=== PATIENT | female | born 2000 | race Caucasian/White ===

== ENCOUNTER 2021-06-01 10:56 | Observation (INO) | payer MEDICAID ==
[2021-06-01 11:59] VITALS: BP 108/63; PULSE 82
--- NOTE | 2021-06-01 12:32 | XRAY ---
Indication: Evaluate AMANDA. Decreased movements. Limited OB ultrasound demonstrates single intrauterine with heart rate 149 BPM. Four-quadrant AMANDA is 22.7 cm, largest pocket 6.3 cm.
== END 2021-06-01 12:30 | disposition home or self-care (01) ==
LOC: OB 10:56
PROVIDERS: ADMIT Family Medicine; ATTEND Family Medicine
DX: Z34.03 Encounter for supervision of normal first pregnancy, third trimester (principal); Z3A.31 31 weeks gestation of pregnancy
CPT/HCPCS: 76815; G0378

== ENCOUNTER 2021-07-15 13:39 | Inpatient (IN) | payer MEDICAID ==
[2021-07-15 14:28] LABS: Amphetamine,Urine NEGATIVE (NEGATIVE); Barbiturate,Urine NEGATIVE (NEGATIVE); Benzodiazepine,Urine NEGATIVE (NEGATIVE); Cocaine,Urine NEGATIVE (NEGATIVE); Methadone,Urine NEGATIVE (NEGATIVE); Opiate,Urine NEGATIVE (NEGATIVE); PCP,Urine NEGATIVE (NEGATIVE); THC,Urine NEGATIVE (NEGATIVE)
[2021-07-15] MEDS ORDERED: TYLENOL EXTRA STRENGTH 500 MG PO PRN (14:48)
[2021-07-15] MEDS ORDERED: Zofran 4 MG/2 ML VIAL IV PRN (14:48)
[2021-07-15] MEDS ORDERED: XYLOCAINE 1% HCL 20 ML MDV IJ PRN (14:48)
[2021-07-15] MEDS ORDERED: Ephedrine Sulfate 50 MG/ML IV PRN (14:55)
[2021-07-15] MEDS ORDERED: Lactated Ringers 1,000 ML IV ONE (14:55)
[2021-07-15] MEDS ORDERED: OMNIPEN 2 GM*** 2 G in Sodium Chloride 100ML MINI-BAG PLUS 100 ML IV ONE (15:00)
[2021-07-15] MEDS ORDERED: FENTANYL 2 MCG-BUPIV 0.125%-NS 250 ML Epidur 250 ML EPIDURAL SCH (15:00)
[2021-07-15 16:13] LABS: Absolute Neutrophil Ct (ANC) 10.09 (1.4-6.9); Basophil (Absolute #) 0.01 (0-0.4); Eosinophil % 0.5 % (0.00-5.0); Eosinophil (Absolute #) 0.06 (0-0.5); Hematocrit 36.4 % (35-47); Hemoglobin 12.2 gm/dl (12.0-16.0); Lymphocyte (Absolute #) 1.85 (1.0-4.6); Lymphocytes % 14.5 % (24.0-44.0); Mean Cell Volume 89.2 fl (78-100); Mean Corpuscular Hemoglobin 29.9 pg (26-32); Mean Corpuscular Hgb Concent. 33.5 g/dl (32-36); Mean Platelet Volume 9.8 fl (7.5-11.0); Monocyte (Absolute #) 0.72 (0.0-1.3); Monocytes % 5.7 % (0.0-12.0); Neutrophil % 79.2 % (36.0-66.0); Platelet Count 271 K/mm3 (150-450); Red Blood Count 4.08 M/mm3 (4.1-5.4); Red Cell Distribution Width 13.2 % (11.5-14.0); White Blood Count 12.7 K/mm3 (4.0-10.5)
[2021-07-15] MEDS ORDERED: BRETHINE 1 MG/ML SQ PRN (16:28)
[2021-07-15] MEDS: Lactated Ringers 1,000 ML IV SCH (16:29)
[2021-07-15] MEDS ORDERED: PITOCIN 30 UNITS/ LR 500 ML 30 UNITS/500 ML PLAST..BAG IV SCH (16:30)
[2021-07-15 17:01] LABS: ABO TYPING O; Antibody Screen NEGATIVE (NEGATIVE); RH TYPING POSITIVE
[2021-07-15 18:57] LABS: COVID AG -BINAX NOW RAPID TEST NEGATIVE (NEGATIVE)
[2021-07-15] MEDS: OMNIPEN 1 GM*** 1 GM in Sodium Chloride 100ML MINI-BAG PLUS 100 ML IV SCH ×2 (19:57→23:51)
[2021-07-16] MEDS: Lactated Ringers 1,000 ML IV SCH ×2 (02:45→04:11)
[2021-07-16] MEDS ORDERED: BRETHINE 1 MG/ML ONE (04:15)
[2021-07-16] MEDS ORDERED: SOD CITRATE-CITRIC ACID SOLN ONE (04:15)
[2021-07-16] MEDS ORDERED: Pepcid 20 MG VIAL IV ONE (04:15)
[2021-07-16] MEDS ORDERED: Reglan 10 MG/2 ML ONE (04:16)
[2021-07-16] MEDS ORDERED: Lactated Ringers 1,000 ML IV ONE (04:24)
[2021-07-16] MEDS ORDERED: Pepcid 20 MG VIAL IV SCH (04:30)
[2021-07-16] MEDS ORDERED: Reglan 10 MG/2 ML IV SCH (04:30)
[2021-07-16] MEDS ORDERED: SOD CITRATE-CITRIC ACID SOLN PO SCH (04:30)
[2021-07-16 04:47] LABS: Hemoglobin 10.9 gm/dl (12.0-16.0); Mean Cell Volume 91.2 fl (78-100); Mean Corpuscular Hemoglobin 30.1 pg (26-32); Mean Platelet Volume 9.7 fl (7.5-11.0); Platelet Count 233 K/mm3 (150-450); Red Blood Count 3.62 M/mm3 (4.1-5.4); Red Cell Distribution Width 13.5 % (11.5-14.0); White Blood Count 15.5 K/mm3 (4.0-10.5)
[2021-07-16] MEDS ORDERED: XYLOCAINE 2%/Epi 1:200000 20ML VIAL MPF ONE (04:50)
[2021-07-16] MEDS ORDERED: Pitocin 10 UNITS/ML ONE (04:50)
[2021-07-16] MEDS ORDERED: Astramorph-Pf 5 MG/10 ML ONE (04:51)
[2021-07-16 04:54] LABS: INR 1.1 (0.8-3.0)
[2021-07-16 04:57] LABS: PTT 27.1 SECONDS (25.1-36.5)
[2021-07-16] MEDS: OMNIPEN 1 GM*** 1 GM in Sodium Chloride 100ML MINI-BAG PLUS 100 ML IV SCH ×2 (05:00→21:00)
[2021-07-16] MEDS ORDERED: CEFAZOLIN 2 GM-D5W BAG** 2 GM/50 ML ML IV SCH (05:00)
[2021-07-16] MEDS ORDERED: Ephedrine Sulfate 50 MG/ML ONE (05:09)
[2021-07-16] MEDS ORDERED: Naropin 0.5% 30 ML VIAL ONE (05:29)
[2021-07-16] MEDS ORDERED: Decadron 4 MG INJ ONE (05:29)
[2021-07-16] MEDS ORDERED: EPINEPHRINE 1MG/ML AMP ONE (05:29)
[2021-07-16] MEDS ORDERED: SUBLIMAZE 100 MCG/2 ML ONE (05:31)
[2021-07-16] MEDS ORDERED: PHENYLEPHRINE HCL ONE (05:38)
[2021-07-16] MEDS ORDERED: TORAdol 30 mg Injection ONE (05:55)
--- NOTE | 2021-07-16 09:14 | OP ---
SURGERY DATE: 07/16/2021 SURGERY TIME: 0505 PREOPERATIVE DIAGNOSES: 1. NONREASSURING HEART TONES. POSTOPERATIVE DIAGNOSES: 1. NONREASSURING HEART TONES. PROCEDURE: 1. Primary low transverse section. SURGEON: John Jones M.D. ANESTHESIA: Epidural by Siva Ye CRNA. ESTIMATED BLOOD LOSS: 400 ml. URINE: 250 ml of clear, straw-colored urine. SPECIMEN: 1. Placenta was sent for pathology. DESCRIPTION OF PROCEDURE: The patient is a 21 y/o 1, para 0 who came in with spontaneous rupture of membranes at 37+ weeks estimated gestational age. During labor, she developed some late decelerations with large sweeping decels at approximately 6 cm of dilation. Therefore, due to nonreassuring heart tones, she was consented for primary low transverse section. Discussed risks, benefits, and alternatives to include risk of bleeding, risk of damage to surrounding structure, and risk of blood loss. The patient consented and had her previously placed laboring epidural dosed for anesthesia and was taken to the OR. She was prepped and draped and after adequate anesthesia was assessed, a low transverse skin incision was made by knife and carried down through the subcutaneous fat to the level of the fascia. The fascia was nicked on both sides of the midline and extended horizontal using curved Benjamin scissors. The superior free edge of the fascia was grasped with Lorenza clamps and the underlying rectus muscles were dissected free. The same was repeated inferiorly. The peritoneal cavity was opened bluntly and extended horizontal. Then, a bladder flap was created and reflected over the lower uterine segment. A horizontal uterine incision was made by knife and carried down to the level of the amniotic membranes which were carefully opened. A viable male with nuchal cord X 1 was delivered from the vertex presentation with some caput. Strong cry was immediately present upon delivery. Oropharynx and nares were bulb suctioned. Then, the cord was clamped and cut and he was handed off to the awaiting nursery team. The placenta was manually extracted and the uterus was exteriorized. The uterus was then closed with #1 chromic in a running, locked fashion with good closure and good hemostasis. The posterior cul-de-sac was wiped free of blood and clot. Then, the uterus was returned to the peritoneal cavity. Lateral gutters were wiped free of blood and clot. Again, the uterine incision was inspected and noted to be hemostatic with good closure. The fascia was closed with 0 Vicryl in a running fashion. Good closure and good hemostasis were achieved at this level as well. Subcutaneous fat was irrigated with warm, sterile saline and any areas of bleeding were cauterized with electrocautery. Finally, the skin layer was closed with 4-0, undyed Vicryl in running subcuticular fashion. Steri-Strips and an occlusive dressing were placed over the incision and the patient was transferred to the recovery room in good condition.
[2021-07-16] MEDS ORDERED: Dulcolax 10 MG SUPP PR PRN (09:17)
[2021-07-16] MEDS ORDERED: Mylicon 80MG PO PRN (09:17)
[2021-07-16] MEDS ORDERED: CORTISONE 1% CREAM TP PRN (09:17)
[2021-07-16] MEDS ORDERED: Anucort-HC SUPPOSITORY PR PRN (09:17)
[2021-07-16] MEDS ORDERED: Adacel Vial IM ONE (09:17)
[2021-07-16] MEDS ORDERED: LANSINOH 40 GM TOP PRN (09:17)
[2021-07-16] MEDS: MOTRIN 400 MG PO PRN (10:43)
[2021-07-16] MEDS ORDERED: BENADRYL 50 MG/ML IV PRN (11:28)
[2021-07-16] MEDS ORDERED: Nubain 10 MG/ML IV PRN (11:28)
[2021-07-16] MEDS ORDERED: PERCOCET TABLET 5/325MG PO PRN (11:28)
[2021-07-16] MEDS ORDERED: CLARITIN 10 MG PO PRN (11:28)
[2021-07-16] MEDS ORDERED: Narcan 0.4 MG/ML IV PRN (11:28)
[2021-07-16] MEDS ORDERED: HOLD NARCOTIC ANALGESICS AND SEDATIVES X24 HR MC PRN (11:28)
[2021-07-16] MEDS ORDERED: DEMEROL 50 MG IV PRN (11:28)
[2021-07-16] MEDS ORDERED: MORPHINE SULFATE 2 MG INJ IV PRN (11:28)
[2021-07-16] MEDS ORDERED: TORAdol 30 mg Injection IV PRN (17:00)
[2021-07-16] MEDS: Dextrose 5%-Lr IV Solution 1000 ML 1,000 ML IV SCH (17:08)
[2021-07-17 06:09] LABS: Absolute Neutrophil Ct (ANC) 11.12 (1.4-6.9); Basophil (Absolute #) 0.02 (0-0.4); Eosinophil % 0.4 % (0.00-5.0); Eosinophil (Absolute #) 0.06 (0-0.5); Hematocrit 27.1 % (35-47); Hemoglobin 8.8 gm/dl (12.0-16.0); Lymphocytes % 17.9 % (24.0-44.0); Mean Cell Volume 92.8 fl (78-100); Mean Corpuscular Hemoglobin 30.1 pg (26-32); Mean Corpuscular Hgb Concent. 32.5 g/dl (32-36); Mean Platelet Volume 9.8 fl (7.5-11.0); Monocytes % 7.9 % (0.0-12.0); Neutrophil % 73.7 % (36.0-66.0); Platelet Count 244 K/mm3 (150-450); Red Blood Count 2.92 M/mm3 (4.1-5.4); Red Cell Distribution Width 13.6 % (11.5-14.0); White Blood Count 15.1 K/mm3 (4.0-10.5)
[2021-07-17] MEDS: MOTRIN 400 MG PO PRN ×3 (06:56→20:13)
[2021-07-17] MEDS: FERREX 150 PO SCH (09:09)
[2021-07-17] MEDS: NORCO 5/325 MG PO PRN ×3 (09:09→21:45)
[2021-07-17] MEDS: Colace 100 MG PO SCH ×2 (09:09→21:45)
[2021-07-17 11:23] LABS: HBsAg Screen Negative (Negative)
[2021-07-17] MEDS: Dextrose 5%-Lr IV Solution 1000 ML 1,000 ML IV SCH ×2 (21:36→21:37)
[2021-07-17] MEDS: Lactated Ringers 1,000 ML IV SCH (21:39)
[2021-07-17] MEDS: PITOCIN 30 UNITS/ LR 500 ML 30 UNITS/500 ML PLAST..BAG IV SCH ×2 (21:47→21:48)
[2021-07-18] MEDS: MOTRIN 400 MG PO PRN ×2 (02:01→11:46)
[2021-07-18 02:34] VITALS: O2SAT 100
[2021-07-18] MEDS: NORCO 5/325 MG PO PRN (08:02)
[2021-07-18 10:31] VITALS: BP 99/58; PULSE 85
[2021-07-18] MEDS: Colace 100 MG PO SCH (11:42)
[2021-07-18] MEDS: FERREX 150 PO SCH (11:43)
--- NOTE | 2021-07-18 12:41 | PCM.DS ---
Discharge Summary Date of Admission: 07/15/21 13:39 Admitting Physician: ROLLY NARANJO Consults: Consults on Case 07/15/21 14:56 Notify Anesthesia Provider PRN 07/16/21 04:24 Notify Anesthesia Provider ROUTINE 07/16/21 09:27 Navigation ONCE 07/16/21 11:28 Notify Anesthesia Provider PRN Primary Care Provider: ROLLY NARANJO Allergies Allergies No Known Drug Allergies Allergy (Unverified 06/24/15 05:54) Hospital Summary - Hospital Course Hospital Course: patient arrived with [facility] in spont labor at 37 3/7 wks, had primary for nonreassuring heart tones during labor. uncomplicated postop course, , mild lochia, normal po intake and pain is well controlled on norc o. doing great and well bonded with her suleiman Mayorga. - Vitals & Intake/Output Vital Signs: Vital Signs Temperature 97.8 F 07/18/21 02:00 Pulse Rate 85 07/18/21 08:00 Respiratory Rate 16 07/18/21 08:00 Blood Pressure 99/58 07/18/21 08:00 O2 Sat by Pulse Oximetry 100 07/18/21 02:00 Intake & Output: Intake & Output 07/16/21 07/17/21 07/18/21 07/19/21 11:59 11:59 11:59 11:59 Intake Total 1220 1480 2220 Output Total 2250 1850 Balance -1030 -370 2220 Weight 85.275 kg - Lab Result Diagrams: 07/17/21 05:15 Micro Results-Entire Visit: Microbiology 07/15/21 20:11 Urine Culture - Final Urine, Indwelling Catheter NO GROWTH - Procedures and Test Procedures and Tests throughout Hospitalization: Therapy Orders & Screens 07/16/21 06:22 Standby STAT Comment: Diagnosis: r/o labor Discharge Exam General Appearance: no apparent distress, alert Neurologic Exam: alert, oriented x 3 Respiratory Exam: normal breath sounds, lungs clear, No respiratory distress Cardiovascular Exam: regular rate/rhythm, normal heart sounds Gastrointestinal/Abdomen Exam: soft, other (incision c/d/i well approximated), No tenderness, No mass Extremity Exam: normal inspection, normal range of motion Skin Exam: normal color, warm, dry Final Diagnosis/Problem List - Final Discharge Diagnosis/Problem (1) delivery delivered Current Visit: Yes Status: Acute Code(s): O82 - ENCOUNTER FOR DELIVERY WITHOUT INDICATION - Discharge Disposition: Home, Self-Care Condition: Stable Prescriptions: New Hydrocodone/Acetaminophen [Hydrocodone-Acetamin 5-325 mg] 1 tab PO Q6HPRN PRN #28 tablet MDD 4 PRN Reason: Pain Continue Pnv No.95/Ferrous Fum/Folic AC [ Vitamins Tablet] 1 tab PO DAILY Discontinued Ferrous Sulfate 325 mg [Feosol 325 mg] 325 mg PO DAILY Follow up with: ROLLY NARANJO MD [Primary Care Provider] - 1 Week
== END 2021-07-18 15:20 | disposition home or self-care (01) | DRG 788 ==
LOC: OBSVTOIN 13:39 → OB 13:39
PROVIDERS: ADMIT Family Medicine; ATTEND Family Medicine
PROC: 10D00Z1 Extraction of Products of Conception, Low, Open Approach (ICD-10-PCS; principal; 2021-07-16)
DX: O76 Abnormality in fetal heart rate and rhythm complicating labor and delivery (principal); Z3A.37 37 weeks gestation of pregnancy; Z37.0 Single live birth
CPT/HCPCS: 36415; 62322; 64488; 76942; 80307; 83986; 84112; 85025; 85027; 85610; 85730; 86850; 86900; 86901; 87086; 87340; 90472; 90715; 94799; 99000; 99140; G0378; J0171; J0290; J0690; J1100; J1885; J2274; J2370; J2590; J2795; J3010; L0625; A9270-GY